=== PATIENT | male | born 1950 | race African-American/Black ===

== ENCOUNTER 2016-05-05 23:25 | Inpatient (IN) | payer MEDICARE ==
[~2016-05-05] VITALS: Ht 175.3 cm; Wt 75.7 kg
[2016-05-06] VITALS (12 sets, daily range): BP systolic 160–228; BP diastolic 88–132
[2016-05-06] MEDS ORDERED: LABETALOL 20 MG/4 ML DISP.SYRIN. IVP ONE ×3 (00:15→01:00)
[2016-05-06 00:25] LABS: BASO % 1 % (0-3); EOS % 2 % (0-3); HEMATOCRIT 41.3 % (39.0-53.0); HEMOGLOBIN 13.7 g/dL (13.0-17.5); LYMPH # 2.5 x10^3/uL (1.0-4.8); LYMPH % 44 % (24-48); MEAN CORPUSCULAR HEMOGLOBIN 30 pg (25-35); MEAN CORPUSCULAR HGB CONC 33 g/dL (31-37); MEAN CORPUSCULAR VOLUME 90 fL (79-100); MONO % 8 % (0-9); NEUT % 45 % (31-73); PLATELET COUNT 184 x10^3/uL (140-400); RED BLOOD COUNT 4.62 x10^6/uL (4.30-5.70); RED CELL DISTRIBUTION WIDTH 13.7 % (11.5-14.5); WHITE BLOOD COUNT 5.6 x10^3/uL (4.0-11.0)
[2016-05-06 00:25] LABS: BILIRUBIN,URINE NEGATIVE (NEG); GLUCOSE,URINE NEGATIVE (NEG); NITRITE,URINE NEGATIVE (NEG); PH,URINE 6.5; PROTEIN,URINE NEGATIVE (NEG-TRACE); UROBILINOGEN,URINE 0.2 mg/dL (0.2 mg/dL)
[2016-05-06 00:35] LABS: CALCIUM 9.5 mg/dL (8.5-10.1); CREATININE 1.5 mg/dL (0.7-1.3); GFR 56.7; POTASSIUM 3.8 mmol/L (3.5-5.1)
[2016-05-06 00:39] LABS: BACTERIA,URINE FEW /HPF (0-FEW); SQUAMOUS EPITHELIAL CELL,UR OCC /LPF
[2016-05-06 00:40] LABS: ALBUMIN 3.7 g/dL (3.4-5.0); DIRECT BILIRUBIN 0.1 mg/dL (0.0-0.2); TOTAL BILIRUBIN 0.3 mg/dL (0.2-1.0); TOTAL PROTEIN 7.6 g/dL (6.4-8.2)
[2016-05-06] MEDS ORDERED: MORPHINE SULFATE 2 MG/ML DISP.SYRIN. IV PRN (02:00)
[2016-05-06] MEDS ORDERED: ONDANSETRON PF 4 MG/2 ML VIAL. IV PRN (02:00)
[2016-05-06] MEDS ORDERED: LOSA100T6 PO (02:19)
[2016-05-06] MEDS ORDERED: TAMS0.4C97 PO (02:19)
[2016-05-06] MEDS ORDERED: OXYB10TA PO (02:19)
--- NOTE | 2016-05-06 02:37 | PHYS DOC ---
Past Medical History Past Medical History: Hypertension Additional Past Medical Histor: ENLARGED PROSTATE Past Surgical History: Other Additional Past Surgical Histo: LEFT KIDNEY REMOVED Alcohol Use: None Drug Use: None Adult General Chief Complaint Chief Complaint: HYPERTENSION HPI HPI 65-year-old male presenting to the emergency department with worsening headache with high blood pressure. At home he reports his blood pressure being approximately 230/125. His headache is sharp nonradiating mild to moderate. It is associated with high blood pressure. No alleviating factors present. Review of systems is negative for vision changes, numbness weakness or tingling or focal neurologic changes, he denies chest pain shortness of breath or oliguria. All other review of systems is negative unless otherwise noted in history of present illness. Review of Systems Review of Systems SEE ABOVE. Current Medications Current Medications Current Medications Medications (Trade) Dose Ordered Sig/David Start Time Stop Time Status Last Admin Dose Admin Labetalol HCl (Normodyne) 20 mg 1X ONCE 05/06/16 00:45 05/06/16 00:56 DC Allergies Allergies Allergies Coded Allergies Type Severity Reaction Last Updated Verified No Known Drug Allergies 05/05/16 No Physical Exam Physical Exam Constitutional: Well developed, well nourished, no acute distress, non-toxic appearance. HENT: Normocephalic, atraumatic, bilateral external ears normal, oropharynx moist, no oral exudates, nose normal. [] Patient denies visual changes. Eyes: PERRLA, EOMI, conjunctiva normal, no discharge. [] Neck: Normal range of motion, no tenderness, supple, no stridor. Cardiovascular:Heart rate regular rhythm, no murmur [] Lungs & Thorax: Bilateral breath sounds clear to auscultation . No crackles on auscultation. Abdomen: Bowel sounds normal, soft, no tenderness, no masses, no pulsatile masses. [] Skin: Warm, dry, no erythema, no rash. Back: No tenderness, no CVA tenderness. [] Extremities: No tenderness, no cyanosis, no clubbing, ROM intact, no edema. Neurologic: Alert and oriented X 3, normal motor function, normal sensory function, no focal deficits noted. Psychologic: Affect normal, judgement normal, mood normal. [] Current Patient Data Vital Signs Vital Signs Date Time Temp Pulse Resp B/P Pulse Ox O2 Delivery O2 Flow Rate FiO2 3/29/17 00:27 65 244/120 05/05/16 23:29 97.5 20 99 Room Air 97.5 Lab Values Laboratory Tests Test 05/06/16 00:00 05/06/16 00:10 Urine Collection Type Unknown Urine Color Yellow Urine Clarity Clear Urine pH 6.5 Urine Specific [place] 1.010 Urine Protein Negativemg/dL (NEG-TRACE) Urine Glucose (UA) Negativemg/dL (NEG) Urine Ketones (Stick) Negativemg/dL (NEG) Urine Blood Trace (NEG) Urine Nitrite Negative (NEG) Urine Bilirubin Negative (NEG) Urine Urobilinogen Dipstick 0.2mg/dL (0.2 mg/dL) Urine Leukocyte Esterase Negative (NEG) Urine RBC 6-10/HPF (0-2) Urine WBC 1-4/HPF (0-4) Urine Squamous Epithelial Cells Occ/LPF Urine Bacteria Few/HPF (0-FEW) White Blood Count 5.6x10^3/uL (4.0-11.0) Red Blood Count 4.62x10^6/uL (4.30-5.70) Hemoglobin 13.7g/dL (13.0-17.5) Hematocrit 41.3% (39.0-53.0) Mean Corpuscular Volume 90fL (79-100) Mean Corpuscular Hemoglobin 30pg (25-35) Mean Corpuscular Hemoglobin Concent 33g/dL (31-37) Red Cell Distribution Width 13.7% (11.5-14.5) Platelet Count 184x10^3/uL (140-400) Neutrophils (%) (Auto) 45% (31-73) Lymphocytes (%) (Auto) 44% (24-48) Monocytes (%) (Auto) 8% (0-9) Eosinophils (%) (Auto) 2% (0-3) Basophils (%) (Auto) 1% (0-3) Neutrophils # (Auto) 2.5x10^3uL (1.8-7.7) Lymphocytes # (Auto) 2.5x10^3/uL (1.0-4.8) Monocytes # (Auto) 0.5x10^3/uL (0.0-1.1) Eosinophils # (Auto) 0.1x10^3/uL (0.0-0.7) Basophils # (Auto) 0.0x10^3/uL (0.0-0.2) Sodium Level 140mmol/L (136-145) Potassium Level 3.8mmol/L (3.5-5.1) Chloride Level 105mmol/L (98-107) Carbon Dioxide Level 29mmol/L (21-32) Anion Gap 6 (6-14) Blood Urea Nitrogen 26mg/dL (8-26) Creatinine 1.5mg/dL (0.7-1.3) H Estimated GFR (Cockcroft-Gault) 56.7 Glucose Level 103mg/dL (70-99) H Calcium Level 9.5mg/dL (8.5-10.1) Total Bilirubin 0.3mg/dL (0.2-1.0) Direct Bilirubin 0.1mg/dL (0.0-0.2) Aspartate Amino Transferase (AST) 17U/L (15-37) Alanine Aminotransferase (ALT) 26U/L (16-63) Alkaline Phosphatase 42U/L (46-116) L Troponin I Quantitative 0.020ng/mL (0.000-0.055) UW-Eyv-F-Type Natriuretic Peptide 161pg/mL (0-124) H Total Protein 7.6g/dL (6.4-8.2) Albumin 3.7g/dL (3.4-5.0) Lipase 168U/L (73-393) Laboratory Tests 05/06/16 00:10 Laboratory Tests 05/06/16 00:10 EKG EKG EKG shows sinus rhythm with a regular rate. Leftward axis present. Intervals are within normal limits. ST segments show mild repolarization present in lead V2. Noncontiguous. Mild ST depression in the lateral leads as well. ST segment in lead V2 shows upwards concavity. Modified scarbossa neg. [] Radiology/Procedures Radiology/Procedures Chest x-ray reviewed by myself shows no obvious infiltrate or pneumothorax. Costophrenic angles are without blunting. [] Course & Med Decision Making Course & Med Decision Making Pertinent Labs and Imaging studies reviewed. (See chart for details) [] 65-year-old male presenting the emergency department today with significant hypertension. The patient's blood pressure in our emergency department was greater than 240. Highest blood pressure recording in our emergency department was 275 systolic. Patient was given 2 doses of labetalol which brought the patient's blood pressure down approximately 20% of highest which was around 210 systolic. Patient's headache improved. Blood work obtained EKG shows mild repolarization with some ST depressions. This does not meet STEMI criteria. CBC unremarkable. Urinalysis negative. Chemistry panel unremarkable including a troponin within the reference range of normal. The patient was then admitted to our hospital for further evaluation workup and care. Cardiology consulted. I discussed the case with Dr. reza at 0115, the patients care was then transferred at that time. Dragon Disclaimer Dragon Disclaimer This electronic medical record was generated, in whole or in part, using a voice recognition dictation system. Departure Departure Impression: Primary Impression: HTN (hypertension) Additional Impressions: Hypertensive urgency Hypertensive urgency, malignant Disposition: ADMITTED INPATIENT Admitting Physician: Og Reza Condition: STABLE Referrals: THOMPSON BRIAN MD (PCP) Problem Qualifiers JR CHERRY MD May 06, 2016 02:37
--- NOTE | 2016-05-06 07:34 | RAD ---
Indication chest pain. A single view of the chest was obtained. No prior imaging of the chest is available. The heart and pulmonary vessels appear normal. The mediastinum is normal. The lungs are clear. IMPRESSION: Normal single view chest
[2016-05-06] MEDS: LABETALOL 20 MG/4 ML DISP.SYRIN. IVP PRN ×2 (08:37→16:50)
--- NOTE | 2016-05-06 09:21 | PDOC2 ---
CARDIAC CONSULT DATE OF CONSULT Date of Consult DATE: 05/06/16 TIME: 09:16 REASON FOR CONSULT Reason for Consult: Hypertension Management REFERRING PHYSICIAN Referring Physician: Dr. Padilla SOURCE Source: Chart review, Patient HISTORY OF PRESENT ILLNESS HISTORY OF PRESENT ILLNESS This is a 65 yo male who presented with complaints of worsening headache and high blood pressure. WATKINS began around 4 pm yesterday. Worsened throughout the late evening. Called daughter, who in an RN; encouraged him to take his blood pressure. Pt reports BP was 237/125 at home, so he came into the ED for further evaluation and treatment. Patient reports h/o hypertension on losartan. Is complaint with home medications. No history of CAD or previous cardiac workup. Denies any chest pain, palpitations, dizziness, diaphoresis, SOA, IRENE, or LE edema. No recent illness/fevers. PAST MEDICAL HISTORY Cardiovascular: HTN Pulmonary: No pertinent hx CENTRAL NERVOUS SYSTEM: Other (no pertinent hx) GI: No pertinent hx Heme/Onc: No pertinent hx Hepatobiliary: No pertinent hx Psych: No pertinent hx Musculoskeletal: Other (no pertinent hx) Rheumatologic: No pertinent hx Infectious disease: No pertinent hx ENT: No pertinent hx Renal/: Chronic renal insuff, Benign prostatic enlarg. Endocrine: No pertinent hx Dermatology: No pertinent hx PAST SURGICAL HISTORY Past Surgical History: Other (left nephrectomy 2/2 possible mass) FAMILY HISTORY Family History: Hypertension SOCIAL HISTORY Smoke: No ALCOHOL: none Drugs: None Lives: with Family CURRENT MEDICATIONS CURRENT MEDICATIONS Current Medications Medications (Trade) Dose Ordered Sig/David Route PRN Reason Start Time Stop Time Status Last Admin Dose Admin Labetalol HCl (Normodyne) 20 mg 1X ONCE IVP 05/06/16 00:15 05/06/16 00:16 DC 05/06/16 00:27 Labetalol HCl (Normodyne) 10 mg 1X ONCE IVP 05/06/16 01:00 05/06/16 01:14 DC 05/06/16 01:04 Labetalol HCl (Normodyne) 20 mg PRN Q2HR PRN IVP HYPERTENSION, SEE COMMENTS 05/06/16 02:00 05/06/16 08:37 ALLERGIES ALLERGIES: Coded Allergies: No Known Drug Allergies (Unverified , 05/05/16) ROS Review of System 14 point ROS conducted with pertinent positives noted above in HPI PHYSICAL EXAM General: Alert, Oriented X3, Cooperative, No acute distress HEENT: Atraumatic, Mucous membr. moist/pink Lungs: Clear to auscultation, Normal air movement Heart: Regular rate, Normal S1, Normal S2, Other (2/6 systolic murmur ) Abdomen: Soft, No tenderness Extremities: No edema, Normal pulses Skin: No significant lesion Neuro: Normal speech, Sensation intact Psych/Mental Status: Mental status NL, Mood NL MUSCULOSKELETAL: Full range of motion without pain VITALS VITALS Vital Signs Date Time Temp Pulse Resp B/P Pulse Ox O2 Delivery O2 Flow Rate FiO2 05/06/16 08:37 81 209/117 05/06/16 06:00 25 99 Room Air 05/06/16 04:33 98.1 98.1 LABS Lab: Laboratory Tests Test 05/06/16 00:00 05/06/16 00:10 05/06/16 07:30 Urine Collection Type Unknown Urine Color Yellow Urine Clarity Clear Urine pH 6.5 Urine Specific [place] 1.010 Urine Protein Negativemg/dL (NEG-TRACE) Urine Glucose (UA) Negativemg/dL (NEG) Urine Ketones (Stick) Negativemg/dL (NEG) Urine Blood Trace (NEG) Urine Nitrite Negative (NEG) Urine Bilirubin Negative (NEG) Urine Urobilinogen Dipstick 0.2mg/dL (0.2 mg/dL) Urine Leukocyte Esterase Negative (NEG) Urine RBC 6-10/HPF (0-2) Urine WBC 1-4/HPF (0-4) Urine Squamous Epithelial Cells Occ/LPF Urine Bacteria Few/HPF (0-FEW) White Blood Count 5.6x10^3/uL (4.0-11.0) Red Blood Count 4.62x10^6/uL (4.30-5.70) Hemoglobin 13.7g/dL (13.0-17.5) Hematocrit 41.3% (39.0-53.0) Mean Corpuscular Volume 90fL (79-100) Mean Corpuscular Hemoglobin 30pg (25-35) Mean Corpuscular Hemoglobin Concent 33g/dL (31-37) Red Cell Distribution Width 13.7% (11.5-14.5) Platelet Count 184x10^3/uL (140-400) Neutrophils (%) (Auto) 45% (31-73) Lymphocytes (%) (Auto) 44% (24-48) Monocytes (%) (Auto) 8% (0-9) Eosinophils (%) (Auto) 2% (0-3) Basophils (%) (Auto) 1% (0-3) Neutrophils # (Auto) 2.5x10^3uL (1.8-7.7) Lymphocytes # (Auto) 2.5x10^3/uL (1.0-4.8) Monocytes # (Auto) 0.5x10^3/uL (0.0-1.1) Eosinophils # (Auto) 0.1x10^3/uL (0.0-0.7) Basophils # (Auto) 0.0x10^3/uL (0.0-0.2) Sodium Level 140mmol/L (136-145) Potassium Level 3.8mmol/L (3.5-5.1) Chloride Level 105mmol/L (98-107) Carbon Dioxide Level 29mmol/L (21-32) Anion Gap 6 (6-14) Blood Urea Nitrogen 26mg/dL (8-26) Creatinine 1.5mg/dL (0.7-1.3) Estimated GFR (Cockcroft-Gault) 56.7 Glucose Level 103mg/dL (70-99) Calcium Level 9.5mg/dL (8.5-10.1) Total Bilirubin 0.3mg/dL (0.2-1.0) Direct Bilirubin 0.1mg/dL (0.0-0.2) Aspartate Amino Transf (AST/SGOT) 17U/L (15-37) Alanine Aminotransferase (ALT/SGPT) 26U/L (16-63) Alkaline Phosphatase 42U/L (46-116) Troponin I Quantitative 0.020ng/mL (0.000-0.055) < 0.017ng/mL (0.000-0.055) MY-Rqu-R-Type Natriuretic Peptide 161pg/mL (0-124) Total Protein 7.6g/dL (6.4-8.2) Albumin 3.7g/dL (3.4-5.0) Lipase 168U/L (73-393) ASSESSMENT/PLAN ASSESSMENT/PLAN 1. Malignant Hypertension resume losartan add BB up titration as necessary hydralazine PRN will obtain renal artery duplex to r/o stenosis 2. WATKINS secondary to above maintain BP control 3. 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 Abnormal EKG T wave inversion in leads 1, II, V5, and V6- no previous for comparison will obtain echocardiogram to assess LV function/presence of WMA and further eval systolic murmur check lipids. resume ASA consider further cardiac workup pending diagnostics. 5. BPH pr PCP Problems: ATA KEY APRN May 06, 2016 09:21
--- NOTE | 2016-05-06 09:35 | EKG ---
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
[2016-05-06] MEDS ORDERED: ASPIRIN ENTERIC COATED 81 MG TABLET.DR. PO SCH (09:45)
[2016-05-06 10:42] LABS: CHOLESTEROL/HDL RATIO 3.1
--- NOTE | 2016-05-06 10:57 | RAD ---
Indication hypertension. Grayscale color Doppler and spectral imaging was performed. Examination was targeted to the kidneys and the renal vasculature. The history of left nephrectomy has been provided. The right kidney measures approximately 12 x 5 cm. No hydronephrosis or mass is seen. The measured velocities in the main renal artery are normal. Ratio values relative to the aorta are also normal. Resistive indices are normal. The renal vein was patent. Note was made of some enlargement of the prostate. IMPRESSION: No evidence of hemodynamically significant stenosis seen associated with the main right renal artery
--- NOTE | 2016-05-06 11:37 | HP ---
ADMIT DATE: 05/06/2016 CHIEF COMPLAINT: Hypertensive urgency. HISTORY OF PRESENT ILLNESS: The patient is a 65-year-old -Citizen Of [place] gentleman with known hypertension who started having a severe headache in his right frontal area about 3:30 yesterday afternoon. He spoke to his daughter who is a nurse in [place] who advised him to check his blood pressure. When he did, his blood pressure was at 235/125 and he presented to the hospital with hypertensive urgency. In the Emergency Room, blood pressure actually was measured even higher at 280 systolic. He was placed on labetalol and brought to the CICU for further monitoring. The patient denies any ongoing headache. He denies any shortness of breath, chest pain, palpitations since episode started. He states he checks his blood pressure and typically is in the 120-130 range, on losartan, which he has been taking as prescribed. PAST MEDICAL HISTORY: Hypertension, renal tumor, status post left nephrectomy in 2007, BPH. FAMILY HISTORY: Positive for hypertension. No cardiac history known. SOCIAL HISTORY: Lives with his . Quit smoking in 1976, no toxic habits. ALLERGIES: No known drug allergies. MEDICATIONS: MAR reconciled with home medications. REVIEW OF SYSTEMS: Positive as per HPI. The patient states that currently he has no complaints in entire organ system review. PHYSICAL EXAMINATION: VITAL SIGNS: Show blood pressure of 181/79, heart rate at 78. He is afebrile. GENERAL: This is a well-nourished, well developed 65-year-old -Citizen Of [place] gentleman, alert and oriented, in no acute distress, very pleasant. HEENT: Shows no scleral icterus. NECK: Supple, without any lymphadenopathy. LUNGS: Clear to auscultation bilaterally. HEART: Regular rate and rhythm without any murmurs. ABDOMEN: Has positive bowel sounds, soft, nontender. EXTREMITIES: Show no edema, no clubbing, no cyanosis. SKIN: Warm, soft and dry without any rash. LABORATORY DATA: Show a WBC of 5.6, hemoglobin 13.7, platelets of 184. Chemistries with BUN and creatinine of 26 and 1.5. Normal electrolytes. LFTs within normal. Troponins negative x 2, BNP normal. Lipid profile shows mildly elevated LDL at 123. RADIOGRAPHIC IMAGING: Chest x-ray in the Emergency Room shows normal chest. ASSESSMENT AND PLAN: The patient is a 65-year-old gentleman coming in with hypertensive urgency. Blood pressure now is better controlled. It was discussed with Cardiology service. We will keep systolic blood pressure of 160-180 for the day and decrease further tomorrow. Etiology of sudden severe hypertension is unclear. He has single kidney. We will obtain a renal duplex ultrasound to rule out artery stenosis. From a cardiac standpoint, echo is indicated as well. He seems to have ruled out for acute coronary syndrome at this time by enzymes and EKGs. We will follow closely. The patient has had a known history of BPH. We will continue his home medications. For prophylaxis, he will be started on Lovenox and H2 kory. SASHA RAHMAN MD DR: LYNETTE/jaylene JOB#: [id number] / [id number] THOMPSON Mike MD
[2016-05-06] MEDS ORDERED: ENOXAPARIN 40 MG/0.4 ML SYRINGE. SQ SCH (12:00)
[2016-05-06] MEDS: METOPROLOL TART IMMED RELEASE 25 MG TABLET PO SCH ×2 (12:26→21:02)
[2016-05-06] MEDS: OXYBUTYNIN CHLORIDE 5 MG TABLET PO SCH ×2 (12:26→21:02)
[2016-05-06] MEDS: TAMSULOSIN 0.4 MG CAP.ER.24H. PO SCH (12:26)
--- NOTE | 2016-05-06 12:35 | CARD ---
APPROVED REPORT EXAM: Two-dimensional and M-mode echocardiogram with Doppler and color Doppler. Other Information Quality : GoodHR: 68bpm Rhythm : NSR INDICATION Abnormal ECG HTN RISK FACTORS Hypertension 2D DIMENSIONS RVDd2.2 (2.9-3.5cm)Left Atrium(2D)3.1 (1.6-4.0cm) IVSd1.5 (0.7-1.1cm)Aortic Root(2D)3.1 (2.0-3.7cm) LVDd4.1 (3.9-5.9cm)LVOT Diameter2.3 (1.8-2.4cm) PWd1.5 (0.7-1.1cm)LVDs2.9 (2.5-4.0cm) FS (%) 28.7 %SV40.5 ml LVEF(%)55.8 (>50%) Aortic Valve AoV Peak Vincenzo.91.5cm/sAoV VTI18.8cm AO Peak GR.3.4mmHgLVOT VTI 12.32cm AO Mean GR.2mmHg Mitral Valve MV E Erbmeodt48.8cm/sMV DECEL [id number] MV A Srimurli95.2cm/sE/A Ratio0.7 MV A [id number] TDI Lateral E' P. V4.48cm/sMedial E' P. V4.69cm/s E/Lateral E'12.7E/Medial E'12.1 Pulmonary Vein S1 Vqyrnlup16.6cm/sS2 Thkjlwfm58.81cm/s D2 Rvbdnrgc36.8cm/sPVa [id number] LEFT VENTRICLE The left ventricle is normal size. There is mild to moderate concentric left ventricular hypertrophy. The left ventricular systolic function is normal and the ejection fraction is within normal range. T he Ejection Fraction is 55-60%. There is normal LV segmental wall motion. Transmitral Doppler flow pa ttern is Grade I-abnormal relaxation pattern. RIGHT VENTRICLE The right ventricle is normal size. There is normal right ventricular wall thickness. The right ventr icular systolic function is normal. ATRIA The left atrium size is normal. The right atrium size is normal. The interatrial septum is intact wit h no evidence for an atrial septal defect or patent foramen ovale as noted on 2-D or Doppler imaging. AORTIC VALVE The aortic valve is mildly thickened. The aortic valve is trileaflet. Doppler and Color Flow revealed no significant aortic regurgitation. There is no significant aortic valvular stenosis. MITRAL VALVE The mitral valve leaflets are thickened. There is no evidence of mitral valve prolapse. There is no m itral valve stenosis. Doppler and Color Flow revealed mild mitral regurgitation. TRICUSPID VALVE Doppler and Color Flow revealed trace tricuspid regurgitation. There is no pulmonary hypertension. PULMONIC VALVE Doppler and Color Flow revealed mild pulmonic valvular regurgitation. There is no pulmonic valvular s tenosis. GREAT VESSELS The aortic root is normal in size. The ascending aorta is normal in size. The pulmonary artery is nor mal. The IVC is normal in size and collapses >50% with inspiration. PERICARDIAL EFFUSION There is no evidence of significant pericardial effusion. Critical Notification Critical Value: No <Conclusion> The left ventricle is normal size. The left ventricular systolic function is normal and the ejection fraction is within normal range. The Ejection Fraction is 55-60%. There is mild to moderate concentric left ventricular hypertrophy. There is no significant aortic valvular stenosis. Doppler and Color Flow revealed no significant aortic regurgitation. Doppler and Color Flow revealed mild mitral regurgitation. Doppler and Color Flow revealed trace tricuspid regurgitation.
[2016-05-06] MEDS: LOSARTAN POTASSIUM 50 MG TABLET. PO SCH (13:58)
[2016-05-06] MEDS ORDERED: hydrALAZINE 20 MG/ML VIAL. IVP PRN (18:30)
[2016-05-06] MEDS ORDERED: AMLODIPINE BESYLATE 5 MG TABLET PO ONE (18:45)
[2016-05-06] MEDS ORDERED: FAMOTIDINE 20 MG TABLET. PO SCH (21:00)
[2016-05-07 00:24] VITALS: BP 159/86
--- NOTE | 2016-05-07 01:13 | ACF ---
Admission Forms Criteria HYPERTENSION Clinical Indications for Admission to Inpatient Care ( Place "X" for any and all applicable criteria): Admission is indicated for ANY ONE of the following(1)(2)(3)(4): [ ]I. Hypertensive emergency, with evidence of acute and progressing target organ disease as indicated by ANY ONE of the following: [ ]a) Hypertensive encephalopathy (eg, confusion, altered mental status) [ ]b) Cerebral infarction [ ]c) Intracranial hemorrhage [ ]d) Myocardial ischemia or infarction [ ]e) Pulmonary edema [ ]f) Aortic dissection [ ]g) Seizure [ ]h) Acute renal insufficiency [ ]i) Papilledema [ ]j) Microangiopathic hemolytic anemia [ ]II. Adrenergic crisis (eg, severe hypertension due to pheochromocytoma crisis, cocaine or amphetamine intoxication, or clonidine withdrawal) [X ]III. Severe hypertension (SBP greater than 180 mmHg or DBP greater than 110 mmHg or greater than the 95th percentile for age, gender, and height in pediatric patients) that cannot be controlled (eg, to SBP less than 160 mmHg and DBP less than 100 mmHg in adults) by treatment with oral medication in emergency department or observation care Extended stay beyond goal length of stay may be needed for(11)(12)(13): [ ]a) Persistent hypertensive encephalopathy [ ]b) Continuation of pulmonary edema [ ]c) Recurring or persistent severe hypertension [ ]d) Target organ damage (eg, angina, stroke, aortic dissection) [ ]e) Associated renal insufficiency The original [facility] content created by [employer] has been revised. The portions of the content which have been revised are identified through the use of italic text or in bold, and [facility] has neither reviewed nor approved the modified material. All other unmodified content is copyright [facility]. Please see references footnoted in the original [facility] edition 2016 Admission Criteria Met?: Yes JULIÁN AMARAL May 07, 2016 01:13
[2016-05-07 03:00] VITALS: BP 156/114
[2016-05-07] MEDS ORDERED: ASPIRIN ENTERIC COATED 81 MG TABLET.DR. PO SCH (06:31)
[2016-05-07 07:30] VITALS: BP 163/105
[2016-05-07 07:50] LABS: BASO % 1 % (0-3); EOS % 0 % (0-3); HEMATOCRIT 46.5 % (39.0-53.0); HEMOGLOBIN 15.4 g/dL (13.0-17.5); LYMPH # 2.2 x10^3/uL (1.0-4.8); LYMPH % 34 % (24-48); MEAN CORPUSCULAR HEMOGLOBIN 30 pg (25-35); MEAN CORPUSCULAR HGB CONC 33 g/dL (31-37); MEAN CORPUSCULAR VOLUME 90 fL (79-100); MONO % 8 % (0-9); NEUT % 57 % (31-73); PLATELET COUNT 201 x10^3/uL (140-400); RED BLOOD COUNT 5.18 x10^6/uL (4.30-5.70); RED CELL DISTRIBUTION WIDTH 13.5 % (11.5-14.5); WHITE BLOOD COUNT 6.4 x10^3/uL (4.0-11.0)
[2016-05-07 07:53] LABS: CALCIUM 9.7 mg/dL (8.5-10.1); CREATININE 1.4 mg/dL (0.7-1.3); GFR 61.4
[2016-05-07] MEDS ORDERED: REGADENOSON 0.4 MG/5 ML DISP.SYRIN. IV ONE (08:30)
[2016-05-07] MEDS ORDERED: AMLODIPINE BESYLATE 5 MG TABLET. ONE (08:51)
[2016-05-07] MEDS ORDERED: AMLODIPINE BESYLATE 5 MG TABLET PO SCH (09:00)
[2016-05-07] MEDS: LOSARTAN POTASSIUM 50 MG TABLET. PO SCH (10:16)
[2016-05-07] MEDS: TAMSULOSIN 0.4 MG CAP.ER.24H. PO SCH (10:16)
[2016-05-07] MEDS: OXYBUTYNIN CHLORIDE 5 MG TABLET PO SCH (10:16)
[2016-05-07 11:01] VITALS: BP 175/89
--- NOTE | 2016-05-07 11:52 | RAD ---
APPROVED REPORT Test Type: Pharmacological Stress Nurse/Tech: Caroline Ballesteros RN Test Indications: Chest Discomfort Cardiac History: see ehr Medications: see ehr Medical History: see ehr Resting ECG: SR Resting Heart Rate: 73 bpm Resting Blood Pressure: 196/106mmHg Pretest Chest Pain: None Nurse/Tech Notes Lungs CTA, S1, S2 Consent: The procedure was explained to the patient in lay terms. Informed consent was witnessed. Agustin eout was entered into [employer]. History and Stress Test performed by Saundra JenkinsNMattie Pharm. Details Pharmacologic stress testing was performed using 0.4mg per 5ml of regadenoson given intravenously ove r 7-10 seconds. Stress Symptoms No chest pain or symptoms. POST EXERCISE Reason for Termination: Infusion complete Max HR: 115 bpm Max Blood Pressure: 194/100mmHg Blood Pressure response to exercise: Normal blood pressure response during stress. Chest Pain: No. Arrhythmia: No. ST Change: No. INTERPRETATION Stress EKG Conclusion: No acute changes were noted. Imaging Protocol IMAGE PROTOCOL: Rest Tc-99m/stress Tc-99m 1 day Rest: Stress: Viability: Radiopharm.Tc99m YugglvbieRw24g Sestamibi [id number] 37.6mCi Duration 15min. 10min. Img Date 05/07/2016 05/07/2016 Inj-Img [id number]. 60min. Rest Admin Site:IV - Right AntecubitalAdministrator:SEGUN Farias Stress Admin Site: IV - Right AntecubitalAdministrator: SEGUN Farias STRESS DATA End Diast. Vol.99.0mlAv. Heart Rate88.0bpm End Syst. Vol.34.0mlCO Index BSA0.0L/min Myocardial Ekpj226.0gEject. Emcyufdz97.0% Stress Rates Pk. Fill Rate1.75EDV/secLVtime Pk. Fill 185.64msec Pk. Empty Rate3.85ESV/secLVtime Pk. Eject80.44msec 02/10 Pk. Fill1.35EDV/sec Stress Scores Regional WT3.00Summed WT32.00 Regional WM0.00Summed WM12.00 The rest and stress images show normal perfusion, normal contraction and thickening. LV Perf. Quant 17 Seg. SSS0.00 17 Seg. SRS0.00 17 Seg. SDS0.00 Stress Defect Extent (% LAD)0.00Rest Defect Extent (% LAD)0.00Rev. Defect Extent (% LAD)0.00 Stress Defect Extent (% LCX) 0.00Rest Defect Extent (% LCX)0.00Rev. Defect Extent (% LCX)0.00 Stress Defect Extent (% RCA)0.00Rest Defect Extent (% RCA)0.00Rev. Defect Extent (% RCA)0.00 Stress Defect Extent (% RAVINDER)0.00Rest Defect Extent (% RAVINDER)0.00Rev. Defect Extent (% RAVINDER)0.00 Other Information Quality:Excellent Risk Assessment: Low Risk Conclusion 1. No evidence of stress induced ischemic changes. Baseline EKG with diffuse TWI suggestive of LVH 2. Normal perfusion at stress/rest 3. Low risk study 4. normal EF at > 65%
[2016-05-07] MEDS ORDERED: ENOXAPARIN 40 MG/0.4 ML SYRINGE. SQ SCH (12:00)
[2016-05-07] MEDS: METOPROLOL TART IMMED RELEASE 25 MG TABLET PO SCH (12:00)
--- NOTE | 2016-05-07 12:02 | PDOC ---
CARDIO Progress Notes Date and Time Date of Service 05/07/16 Time of Evaluation 1010 Subjective Subjective: No Chest Pain, No shortness of breath, No Palpitations, No Dizziness Vitals Vitals Vital Signs Date Time Temp Pulse Resp B/P Pulse Ox O2 Delivery O2 Flow Rate FiO2 05/07/16 11:01 98.3 88 12 175/89 100 Room Air 98.3 Weight Weight [ ] Input and Output Intake and Output Intake and Output 05/07/16 07:00 Output Total 700 ml Balance -700 ml Output Urine Total 700 ml Laboratory Labs Laboratory Tests Test 05/06/16 13:30 05/07/16 07:25 Troponin I Quantitative < 0.017ng/mL (0.000-0.055) White Blood Count 6.4x10^3/uL (4.0-11.0) Red Blood Count 5.18x10^6/uL (4.30-5.70) Hemoglobin 15.4g/dL (13.0-17.5) Hematocrit 46.5% (39.0-53.0) Mean Corpuscular Volume 90fL (79-100) Mean Corpuscular Hemoglobin 30pg (25-35) Mean Corpuscular Hemoglobin Concent 33g/dL (31-37) Red Cell Distribution Width 13.5% (11.5-14.5) Platelet Count 201x10^3/uL (140-400) Neutrophils (%) (Auto) 57% (31-73) Lymphocytes (%) (Auto) 34% (24-48) Monocytes (%) (Auto) 8% (0-9) Eosinophils (%) (Auto) 0% (0-3) Basophils (%) (Auto) 1% (0-3) Neutrophils # (Auto) 3.6x10^3uL (1.8-7.7) Lymphocytes # (Auto) 2.2x10^3/uL (1.0-4.8) Monocytes # (Auto) 0.5x10^3/uL (0.0-1.1) Eosinophils # (Auto) 0.0x10^3/uL (0.0-0.7) Basophils # (Auto) 0.0x10^3/uL (0.0-0.2) Sodium Level 142mmol/L (136-145) Potassium Level 4.0mmol/L (3.5-5.1) Chloride Level 106mmol/L (98-107) Carbon Dioxide Level 25mmol/L (21-32) Anion Gap 11 (6-14) Blood Urea Nitrogen 21mg/dL (8-26) Creatinine 1.4mg/dL (0.7-1.3) Estimated GFR (Cockcroft-Gault) 61.4 Glucose Level 112mg/dL (70-99) Calcium Level 9.7mg/dL (8.5-10.1) Physical Exam HEENT: Neck Supple W Full Motion Chest: Symmetric LUNGS: Clear to Auscultation Heart: S1S2, RRR, murmurs (2/6 systolic mumur ) Abdomen: Soft N/T Extremities: 2+ Dorsalis Pedis, No Edema, No Calf Tenderness Neurology: alert, oriented, follow commands Assessment Assessment 1. Malignant Hypertension now improved with addition of Norvasc renal duplex with no evidence of stenosis hydralazine PRN 2. WATKINS secondary to above now resolved maintain BP control 3. 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 Abnormal EKG echo with preserved LV function; no evidence of WMA MPI underway today to r/o reversible ischemia if no evidence of ischemia, may discharge from CV standpoint 5. BPH pr PCP 6. Hyperlipidemia LDL 123 recommend dietary modification unless MPI abnormal ATA KEY APRN May 07, 2016 12:02
[2016-05-07 12:04] VITALS: BP 149/76
[2016-05-07 15:24] VITALS: BP 134/85
[2016-05-07] MEDS ORDERED: ASPI81TA9 PO (16:34)
[2016-05-07] MEDS ORDERED: METO25TA4 PO (16:34)
[2016-05-07] MEDS ORDERED: AMLO5TAB2 PO (16:34)
--- NOTE | 2016-05-07 23:13 | DS ---
DATE OF DISCHARGE: 05/07/2016 CHIEF COMPLAINT: Hypertensive urgency. HOSPITAL COURSE: The patient is a 65-year-old -Turkish gentleman with known hypertension who presented to the Emergency Room with severe headache which prompted a blood pressure check at home, which was exceedingly high. In the Emergency Room, blood pressure was noted to be 280s/125 and he was therefore admitted to the CICU for further management. Blood pressure was brought under control with addition of IV beta blockers which were later switched to p.o. in addition to his losartan. Norvasc was added as well. He underwent echocardiogram on the , which was essentially within normal limits, not showing any ischemic abnormality, normal ejection fraction with blood pressure under control. On the , he was deemed stable for discharge with close followup with his primary care physician. PHYSICAL EXAMINATION: VITAL SIGNS: At discharge, showed a blood pressure of 134/85, heart rate of 79, respiratory rate at 18. He is afebrile. GENERAL: He is alert and oriented, in no acute distress. HEENT: Shows no scleral icterus. NECK: Supple. LUNGS: Clear. HEART: Regular rate and rhythm. ABDOMEN: Has positive bowel sounds, soft, nontender. EXTREMITIES: Show no edema. DISCHARGE DIAGNOSIS: Hypertensive urgency. DISCHARGE DISPOSITION: To home. DISCHARGE CONDITION: Improved. DISCHARGE MEDICATIONS: Please refer to MAR. DISCHARGE INSTRUCTIONS: The patient will follow up with his primary care physician within 1 week. SASHA RAHMAN MD DR: LYNETTE/nts JOB#: [id number] / [id number] THOMPSON Mike MD
== END 2016-05-07 19:52 | disposition home or self-care (01) | DRG 305 ==
LOC: ER 23:25 → CVICU 05-06 00:58 → OBSVTOIN 05-06 01:30
PROVIDERS: ADMIT Internal Medicine; ATTEND Internal Medicine
PROC: 4A02X4Z Measurement of Cardiac Electrical Activity, External Approach (ICD-10-PCS; principal; 2016-05-06)
DX: I16.0 Hypertensive urgency (principal); N18.9 Chronic kidney disease, unspecified; I12.9 Hypertensive chronic kidney disease with stage 1 through stage 4 chronic kidney disease, or unspecified chronic kidney disease; N40.0 Benign prostatic hyperplasia without lower urinary tract symptoms; E78.5 Hyperlipidemia, unspecified; R51 Headache; R94.31 Abnormal electrocardiogram [ECG] [EKG]; Z79.899 Other long term (current) drug therapy; Z82.49 Family history of ischemic heart disease and other diseases of the circulatory system; Z87.891 Personal history of nicotine dependence; Z90.5 Acquired absence of kidney
CPT/HCPCS: 36415; 71010; 76775; 78452; 80048; 80061; 80076; 81001; 83690; 83880; 84443; 84484; 85027; 87641; 93005; 93017; 93306; 96374; 96375; 96376; A9500; G0379; J0360; J1650; J2785; J3490; 99285-25

== ENCOUNTER 2018-02-09 03:57 | Emergency (ER) | payer MEDICARE ==
[~2018-02-09] VITALS: Ht 175.3 cm; Wt 72.6 kg
[~2018-02-09 03:57] MED LIST: AMLO5TAB7 PO; ASPI-612 PO; LOSA100T14 PO; METO25TA4 PO; OXYB10TA PO; TAMS0.4C97 PO
[2018-02-09] MEDS ORDERED: MORPHINE SULFATE 4 MG/ML VIAL. IM ONE (04:30)
[2018-02-09] MEDS ORDERED: hydrALAZINE 20 MG/ML VIAL. IM ONE (04:30)
--- NOTE | 2018-02-09 05:06 | RAD ---
Pelvis and right hip 2 views: Reason for examination: Right hip pain tonight. No acute fractures seen. The bone density is normal. No abnormality seen at the sacrum or sacroiliac joints. 2 views of the right hip show no acute fracture or dislocation. The bone density is normal. No abnormal periosteal reaction is seen. Joint spaces are maintained. Incidental note is made of a 3.2 cm spiculated density in the pelvis which appears to be calcified and would be consistent with a bladder stone. IMPRESSION: No acute bony abnormality of the pelvis or right hip. 3.2 cm spiculated calcific density in the pelvis consistent with a bladder stone. Electronically signed by: Lisette Bishop MD (02/09/2018 5:01 AM) [facility]
[2018-02-09 05:17] VITALS: BP 179/92
[2018-02-09] MEDS ORDERED: HYDR-3164 PO (05:17)
--- NOTE | 2018-02-09 05:35 | PHYS DOC ---
Past Medical History Past Medical History: Hypertension Additional Past Medical Histor: ENLARGED PROSTATE Past Surgical History: Other Additional Past Surgical Histo: LEFT KIDNEY REMOVED Alcohol Use: None Drug Use: None Adult General Chief Complaint Chief Complaint: HIP PAIN HPI HPI Patient is a 67 year old female presenting with chief complaint of leg pain. Right hip and anterior thigh described as burning sharp pain for the last couple of days worse tonight worse with movement worse with ambulation no bowel or bladder incontinence no numbness no chest pain. Review of Systems Review of Systems Constitutional: Denies fever or chills [] Eyes: Denies change in visual acuity, redness, or eye pain [] HENT: Denies nasal congestion or sore throat [] Respiratory: Denies cough or shortness of breath [] Cardiovascular: No additional information not addressed in HPI [] GI: Denies abdominal pain, nausea, vomiting, bloody stools or diarrhea [] Neurologic: Denies headache, focal weakness or sensory changes [] Endocrine: Denies polyuria or polydipsia [] All other systems were reviewed and found to be within normal limits, except as documented in this note. Current Medications Current Medications Current Medications Medications (Trade) Dose Ordered Sig/David Start Time Stop Time Status Last Admin Dose Admin Hydralazine HCl (Apresoline Inj) 20 mg 1X ONCE 02/09/18 04:30 02/09/18 04:49 DC 02/09/18 04:35 20 MG Morphine Sulfate (Morphine Sulfate) 4 mg 1X ONCE 02/09/18 04:30 02/09/18 04:49 DC 02/09/18 04:36 4 MG Allergies Allergies Allergies Coded Allergies Type Severity Reaction Last Updated Verified I S O L A T I O N *CONTACT* Allergy Unknown 05/07/16 Yes No Known Medication Allergies Allergy Unknown 05/07/16 Yes Physical Exam Physical Exam Constitutional: Well developed, well nourished, no acute distress, non-toxic appearance. [] HENT: Normocephalic, atraumatic, bilateral external ears normal, oropharynx moist, no oral exudates, nose normal. [] Eyes: PERRLA, EOMI, conjunctiva normal, no discharge. [] Neck: Normal range of motion, no tenderness, supple, no stridor. [] Pulmonary: Normal respiratory effort no increased work of breathing no obvious chest wall trauma Abdomen: Bowel sounds normal, soft, no tenderness, no masses, no pulsatile masses. [] Skin: Warm, dry, no erythema, no rash. [] Back: No tenderness, no CVA tenderness. [] Extremities:, no cyanosis, no clubbing, ROM intact, no edema. [] There is some mild tenderness to palpation of the right anterior thigh but no obvious trauma seen pedal pulse intact sensation and strength intact Neurologic: Alert and oriented X 3, normal motor function, normal sensory function, no focal deficits noted. [] Psychologic: Affect normal, judgement normal, mood normal. [] Current Patient Data Vital Signs Vital Signs Date Time Temp Pulse Resp B/P (MAP) Pulse Ox O2 Delivery O2 Flow Rate FiO2 02/09/18 05:17 86 18 179/92 (121) 100 02/09/18 04:10 97.7 Room Air 97.7 EKG EKG [] Radiology/Procedures Radiology/Procedures [] Course & Med Decision Making Course & Med Decision Making Pertinent Labs and Imaging studies reviewed. (See chart for details) []X-ray negative for acute fracture. Noted bladder stone I told the patient about this he says that he knows about the same urologist told me about this in the past. I don't think it is causing his discomfort. Patient was given morphine in the emergency room and felt better. Of note his blood pressure was very high this is likely mostly related to pain we gave morphine we gave hydralazine a blood pressure came down he was feeling better we discharged him with [place] I did advise him to get blood pressure checked within 1 week and to definitely be compliant with all of his home blood pressure medications he endorsed agreement Fermínon Disclaimer Dragrainer Disclaimer This electronic medical record was generated, in whole or in part, using a voice recognition dictation system. Departure Departure Impression: Primary Impression: Leg pain Additional Impression: HTN (hypertension) Disposition: HOME, SELF-CARE Condition: STABLE Patient Instructions: Sciatica, Wbat-ba-Ozcz Scripts Hydrocodone/Apap 5-325 (NORCO 5-325 TABLET) 1 Each Tablet 1-2 EACH PO PRN Q6HRS PRN for PAIN, #15 as needed for pain Prov: JAH MAGDALENO MD 02/09/18 Problem Qualifiers JAH MAGDALENO MD Feb 09, 2018 05:35
== END 2018-02-09 05:27 | disposition home or self-care (01) ==
LOC: ER 03:57
DX: M25.551 Pain in right hip (principal); M79.651 Pain in right thigh; I10 Essential (primary) hypertension; N40.0 Benign prostatic hyperplasia without lower urinary tract symptoms; Z90.5 Acquired absence of kidney; Z91.041 Radiographic dye allergy status
CPT/HCPCS: 73502; 96372; 99283; J0360; J2270

== ENCOUNTER → 2019-04-19 | Day surgery (SDC) | payer OTHER ==
[~2019-04-19] MED LIST changes: +AMLO5TAB10 PO; -AMLO5TAB7 PO; +HYDR-3164 PO; +HYDR12.575 PO; +IV RINGERS,LACTATED 1000ML 1,000 ML IV SCH; +LIDOCAINE 2% PF 5 ML VIAL. ONE; -OXYB10TA PO; +OXYB10TA26 PO; +PROPOFOL 40 ML IV ONE
[2019-04-19 09:44] VITALS: BP 146/85
--- NOTE | 2019-04-20 14:07 | PATHOLOGY ---
[facility] Accession Number: [id number] . 01 Material submitted: . PART A: sigmoid colon - SIGMOID POLYP PART B: colon - TRANSVERSE POLYP. Modifiers: transverse . 01 Clinical history: . Colorectal cancer screening . 02 Diagnosis: A. Colon biopsy, sigmoid colon polyp: - Tubular adenoma. . B. Colon biopsies, transverse colon polyps: - Tubular adenomas. (JPM:apolinar; 04/20/2019) QMS 04/20/2019 1001 Local . 02 Comment: There is no high grade dysplasia or evidence of malignancy. . 02 Electronically signed: . Suresh Reed MD, Pathologist NPI- [id number] . 01 Gross description: . A. The specimen is received in formalin, labeled "Baldo Mathew, sigmoid polyp". Received is a segment of pale [place] soft tissue measuring 0.6 cm in maximum dimensions. The specimen is submitted entirely in cassette A1. . B. The specimen is received in formalin, labeled "Baldo Mathew, transverse colon polyp". Received are multiple (greater than 10) segments of pale [place] soft tissue ranging in size from 0.2 to 0.8 cm in maximum dimensions. The specimen is submitted entirely in cassette B1. (CAA; 04/19/2019) QAC/QAC 04/19/2019 1527 Local . 02 Pathologist provided ICD-10: D12.5, D12.3 . 02 CPT . 286419, 085461 Specimen Comment: A courtesy copy of this report has been sent to [phone] Specimen Comment: Report sent to Performed at: [address], [place], [place] [id number] MD Sunny Hamlin MD Phone: [phone] Performed at: [address] [id number] MD Suresh Reed MD Phone: [phone]
== END | disposition home or self-care (01) ==
LOC: ENDOS 07:43
PROVIDERS: ATTEND Internal Medicine Gastroenterology
DX: Z12.11 Encounter for screening for malignant neoplasm of colon (principal); D12.3 Benign neoplasm of transverse colon; D12.5 Benign neoplasm of sigmoid colon; K57.30 Diverticulosis of large intestine without perforation or abscess without bleeding; K64.0 First degree hemorrhoids; I10 Essential (primary) hypertension; F15.90 Other stimulant use, unspecified, uncomplicated; Z72.89 Other problems related to lifestyle; Z87.891 Personal history of nicotine dependence
CPT/HCPCS: 45385; J2001; J2704; 88305

== ENCOUNTER 2019-07-22 20:30 | Emergency (ER) | payer OTHER ==
[~2019-07-22] VITALS: Ht 177.8 cm; Wt 75.0 kg
[~2019-07-22 20:30] MED LIST changes: -IV RINGERS,LACTATED 1000ML 1,000 ML IV SCH; -LIDOCAINE 2% PF 5 ML VIAL. ONE; -PROPOFOL 40 ML IV ONE
--- NOTE | 2019-07-22 21:19 | PHYS DOC ---
Past Medical History Past Medical History: Hypertension Additional Past Medical Histor: ENLARGED PROSTATE Past Surgical History: Other Additional Past Surgical Histo: LEFT KIDNEY REMOVED Smoking Status: Former Smoker Alcohol Use: None Drug Use: None General Adult EDM: Chief Complaint: URINE CATHETER PROBLEM HPI: HPI: Patient is a 69 year old male who presents with complaint that his Thompson c atheter bag has been leaking. He denies any other complaints at this time. He denies fever, abdominal pain, nausea, vomiting or diarrhea. [] Review of Systems: Review of Systems: Constitutional: Denies fever or chills. [] Respiratory: Denies cough or shortness of breath. [] Cardiovascular: Denies chest pain or edema. [] Integument: Denies rash. [] Neurologic: Denies headache, focal weakness or sensory changes. [] Heart Score: Risk Factors: Risk Factors: DM, Current or recent (<one month) smoker, HTN, HLP, family history of CAD, obesity. Risk Scores: Score 0 - 3: 2.5% MACE over next 6 weeks - Discharge Home Score 4 - 6: 20.3% MACE over next 6 weeks - Admit for Clinical Observation Score 7 - 10: 72.7% MACE over next 6 weeks - Early Invasive Strategies Allergies: Allergies: Allergies Coded Allergies Type Severity Reaction Last Updated Verified I S O L A T I O N *CONTACT* Allergy Unknown 05/07/16 Yes No Known Medication Allergies Allergy Unknown 04/19/19 Yes Physical Exam: PE: Constitutional: Well developed, well nourished, no acute distress, non-toxic appearance. [] Cardiovascular: Regular rate and rhythm [] Lungs & Thorax: Bilateral breath sounds clear to auscultation [] Abdomen: Bowel sounds normal, soft, no tenderness. [] Skin: Warm, dry, no erythema, no rash. [] Current Patient Data: Vital Signs: Vital Signs Date Time Temp Pulse Resp B/P (MAP) Pulse Ox O2 Delivery O2 Flow Rate FiO2 07/22/19 20:31 98.2 72 16 117/64 (81) 100 Room Air 98.2 EKG: EKG: [] Radiology/Procedures: Radiology/Procedures: [] Course & Med Decision Making: Course & Med Decision Making Pertinent Labs and Imaging studies reviewed. (See chart for details) [] Dragon Disclaimer: Dragon Disclaimer: This electronic medical record was generated, in whole or in part, using a voice recognition dictation system. Departure Departure Impression: Primary Impression: Thompson catheter problem Qualified Codes: T83.9XXA - Unspecified complication of genitourinary prosthetic device, implant and graft, initial encounter Disposition: 01 HOME, SELF-CARE Condition: STABLE Referrals: JOSE ANTONIO (PCP) Patient Instructions: Thompson Catheter Care, Adult Justicifation of Admission Dx: Justifications for Admission: Justification of Admission Dx: Comment: (Not applicable) THOMPSON SOTELO Jr. DO Jul 22, 2019 21:19
[2019-07-22 21:44] VITALS: BP 164/69
== END 2019-07-22 21:38 | disposition home or self-care (01) ==
LOC: ER 20:30
DX: T83.038A Leakage of other urinary catheter, initial encounter (principal); I10 Essential (primary) hypertension; Z87.891 Personal history of nicotine dependence; Z91.041 Radiographic dye allergy status; Y82.8 Other medical devices associated with adverse incidents; Y92.89 Other specified places as the place of occurrence of the external cause
CPT/HCPCS: 99281